=== PATIENT | female | born 1965 | race Two or more races ===

== ENCOUNTER 2024-05-20 16:23 | Emergency (ER) | payer MEDICAID, SELFPAY ==
[2024-05-20 16:24] VITALS: BMI 36.6
[2024-05-20 16:58] VITALS: BP 168/83; PULSE 86; RESP 20; TEMP 37; O2SAT 96
--- NOTE | 2024-05-20 17:05 | PD.EDRME ---
Rapid Medical Screening Exam RME Arrival date/time: 05/20/24 16:23 This is a 58-year-old female presents to the emergency department with complaints of left lower quadrant abdominal pain. I have greeted and performed a focused initial assessment of this patient. Initial appropriate labs ordered at this time. A comprehensive ED assessment and evaluation of the patient and analysis of all test and completion of medical decision making process will be conducted by additional ED provider. Chief Complaint: GI Bleed Time Seen by Provider: 05/20/24 16:51 Vital signs: Vital Signs Temperature 98.6 F 05/20/24 16:58 Pulse Rate 86 05/20/24 16:58 Respiratory Rate 20 05/20/24 16:58 Blood Pressure 168/83 H 05/20/24 16:58 Pulse Oximetry (%) 96 05/20/24 16:58 Oxygen Delivery Method Room Air 05/20/24 16:58
[2024-05-20 18:06] LABS: Basophils # (Auto) 0.1 Thou/mm3 (0.0-0.2); Basophils % (Auto) 1 % (0-2.5); Eosinophils # (Auto) 0.2 Thou/mm3 (0.0-0.5); Eosinophils % (Auto) 2 % (0-10); Hemoglobin 13.8 g/dL (12.0-16.0); Immature Granulocytes % (Auto) 0 % (0-0); Immature Granulocytes Auto 0.02 Thou/mm3 (0.00-0.00); Lymphocytes # (Auto) 3.7 Thou/mm3 (1.0-4.8); Lymphocytes % (Auto) 36 % (10-50); Mean Corpuscular HGB Conc 33.7 g/dl (31.0-37.0); Mean Corpuscular Hemoglobin 28.8 pg (25.0-35.0); Mean Corpuscular Volume 85 fL (80-100); Monocytes # (Auto) 0.9 Thou/mm3 (0.0-0.8); Monocytes % (Auto) 8 % (0-12); Neutrophils # (Auto) 5.5 Thou/mm3 (1.8-7.7); Neutrophils % (Auto) 53 % (37-80); Nucleated Red Blood Cell % 0 /100 WBC (0); Platelet Count 357 Thou/mm3 (140-440); RDW Standard Deviation 42.7 fL (36.4-46.3); White Blood Count 10.3 Thou/mm3 (3.6-11.0)
[2024-05-20 18:25] LABS: Alanine Aminotransferase 21 U/L (10-49); Albumin, Serum 4.7 gm/dL (3.5-5.0); Albumin/Globulin Ratio 1.6 (1.2-2.2); Alkaline Phosphatase 70 U/L (46-116); Anion Gap 11 (7-16); Aspartate Amino Transferase 20 U/L (0-34); BUN/Creatinine Ratio 13 Ratio (12-20); Bilirubin,Total 0.7 mg/dL (0.3-1.2); Blood Urea Nitrogen 13 mg/dL (9-23); Calcium 9.7 mg/dL (8.3-10.6); Calcium (Corrected) 9.7 mg/dL (8.5-10.1); Carbon Dioxide 24.2 mMol/L (20.0-31.0); Chloride 105 mMol/L (98-107); Estimated Creatinine Clearance 65.8 mL/min (>60); Glucose 109 mg/dL (74-106); Lipase 33 U/L (12-53); Osmolality,Calculated 280 (275-295); Potassium 4.1 mMol/L (3.4-5.1); Prothrombin Time 10.9 Seconds (9.0-12.2); Sodium 140 mMol/L (136-145); Total Protein 7.7 gm/dL (5.7-8.2); eGFR > 60 See Note
--- NOTE | 2024-05-20 18:42 | PD.EDGIBLD ---
ED GI Bleed RME/HPI General Chief complaint: GI Bleed Stated complaint: THERE WAS BLOOD IN MY POOP SINCE YESTERDAY. Time Seen by Provider: 05/20/24 16:51 Arrival date/time: 05/20/24 16:23 RME / HPI RME / HPI Narrative: 05/20/24 16:23 This is a 58-year-old female presents to the emergency department with complaints of left lower quadrant abdominal pain. I have greeted and performed a focused initial assessment of this patient. Initial appropriate labs ordered at this time. A comprehensive ED assessment and evaluation of the patient and analysis of all test and completion of medical decision making process will be conducted by additional ED provider. This section includes all my notes and documentations, including HPI, PE, and ED course. Timothy Aceves MD HPI: 58yo female with a history of GERD, HTN, HLD presents to the ED with several days of epigastric tenderness. And several episodes of rectal bleeding, describes bright red blood. No hematemesis or coffee-ground emesis. No tarry stools. No other complaints. ROS: All negative except as documented in HPI. Physical Exam: General: Alert and oriented. Appears uncomfortable. Eyes: Conjunctivae and lids clear. ENT: No nasal congestion. Neck: Supple. Heart: RRR. Lungs: No respiratory distress. Good air movement. No rhonchi, wheezing, rales. Abdomen: Soft with epigastric tenderness. Normal BS. No distention. No rebound or guarding. Legs: No clubbing, cyanosis, edema. Skin: Warm and dry. Neuro: Alert and oriented X 3. I reviewed all diagnostic test results. My review of the abdominal CT report is gastritis. Blood tests and urine tests unremarkable. At this point, diagnoses include gastritis and rectal bleeding. Treatment here included Famotidine, NS, Toradol, Morphine, Zofran, and Pantoprazole. Significant improvement noted. Prescribed famotidine and omeprazole and recommended more outpatient workup. Based on my best medical judgment, made decision no further evaluation or treatment indicated at this time. Patient understands and agrees to the discharge instructions customized and printed, see below. Discharge instructions from Dr. Aceves: ?After evaluation, there is no evidence of active internal bleeding. --The CT scan shows stomach ulcer (see attached handout). ?To help heal the ulcer, take Omeprazole 40 mg every morning and Famotidine 40 mg at bedtime for a month. ?Zofran for nausea/vomiting. Clear liquid diet for 24 hours. Then slowly advance diet as tolerated. Tylenol with codeine for severe pain. ?Avoid food and beverages that can trigger and worsen ulcers. See attached handout. ?See a private doctor on 05/23/2024 for recheck and further care. To make sure there is no serious intra-abdominal condition, ask for help with more investigation not available here in the ER. Such as EGD or scoping the stomach, colonoscopy or scoping the colon, and referral to see garment form assembler. ?Seek immediate medical care with worsening or with any concerns. Timothy Aceves MD Related Data Home Medications ?Medication ?Instructions ?Recorded ?Confirmed lisinopril 20 mg tablet 20 mg PO HS 03/17/18 01/05/22 paroxetine HCl 40 mg tablet 40 mg PO QDAY 03/17/18 01/05/22 quetiapine 50 mg tablet (Seroquel) 100 mg PO HS 03/17/18 01/05/22 pantoprazole 40 mg tablet,delayed 40 mg PO QDAY 03/22/19 01/05/22 release cetirizine 10 mg tablet 10 mg PO QDAY 01/05/22 01/05/22 pravastatin 20 mg tablet 20 mg PO QDAY 01/05/22 01/05/22 topiramate 100 mg tablet 100 mg PO BID 01/05/22 01/05/22 Previous Rx's ?Medication ?Instructions ?Recorded pantoprazole 40 mg tablet,delayed 40 mg PO QDAY #30 tabs 04/10/23 release (Protonix) acetaminophen 300 mg-codeine 30 mg 2 tab PO Q8H PRN pain #20 tabs 05/20/24 tablet famotidine 40 mg tablet 40 mg PO .bedtime #30 tabs 05/20/24 omeprazole 40 mg capsule,delayed 40 mg PO QDAY #30 caps 05/20/24 release ondansetron 4 mg disintegrating 4 mg PO TID PRN nausea and 05/20/24 tablet vomiting 30 days #10 tabs Allergies Allergy/AdvReac Type Severity Reaction Status Date / Time diazepam Allergy Intermediate hives, Verified 05/20/24 16:29 swelling hydrocodone Allergy Intermediate throat Verified 05/20/24 16:29 swelling, hives tomato Allergy Intermediate Swelling Verified 05/20/24 16:29 of Lip/Tongue/Throat lactose Allergy Gastrointestinal Verified 05/20/24 16:29 Upset Review of Systems Review of Systems Systems Reviewed: All systems reviewed, normal except as documented Past Medical History Past Medical History NEUROLOGIC: Positive Neurological Disorders, Transient Ischemic Attacks (TIA) and Migraine; Negative Seizures CARDIAC: Positive Heart Murmur, Hypercholesterolemia and Hypertension; Negative Cardiac Disorders or Congestive Heart Failure RESPIRATORY: Negative Chronic Obstructive Pulmonary Disease (COPD) or Asthma GASTROINTESTINAL: Positive Gastrointestinal Disorders and Gastroesophageal Reflux Disease GENITOURINARY: Negative Genitourinary Disorders or Renal Disease REPRODUCTIVE: Positive Previous Pregnancies MUSCULOSKELETAL: Positive Musculoskeletal Disorders and Arthritis ENDOCRINE: Negative Endocrine Disorders, Diabetes Mellitus Type 1 or Diabetes Mellitus Type 2 HEMATOLOGIC: Negative Blood Disorders or Sickle Cell Disease PSYCHO/SOCIAL: Positive Schizophrenia, Depression, Anxiety and Post Traumatic Stress Disorder OTHER HISTORY: Positive Chicken Pox and Measles; Negative Autoimmune Disease, Blood Transfusions, Anesthesia Reactions, MRSA, VRSA, Vancomycin-Resistant Enterococci or Cancer Family History FAMILY HISTORY: Positive Family Cardiac Disorders and Family Cancer; Negative Family Psychiatric Problems, Family Respiratory Disorders, Family Gastrointestinal Problems, Family Surgery or Family Anesthesia Reaction Surgical History SURGICAL: Positive Abdominal Surgery and Tubal Ligation Social History SMOKING STATUS: Never smoker SUBSTANCE USE: former substance user (quit X15 years, relapsed X1) and methamphetamine 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 Course Quality Measures none Orders Category Date Time Status CT Screening NOW Care 05/20/24 18:[address] Screening NOW Care 05/20/24 20:32 Active Insert IV NOW Care 05/20/24 17:05 Active NPO STAT Care 05/20/24 17:[address] angio abdomen pelvis Stat Exams 05/20/24 20:32 Completed CBC Stat Lab 05/20/24 17:45 Completed Comprehensive Metabolic Panel Stat Lab 05/20/24 17:45 Completed Hemoglobin and Hematocrit Stat Lab 05/20/24 21:29 Completed Lipase Stat Lab 05/20/24 17:45 Completed Prothrombin Time with INR Stat Lab 05/20/24 17:45 Completed Type and Screen Stat Lab 05/20/24 17:45 Completed Urinalysis Stat Lab 05/20/24 20:00 Completed Famotidine Inj [Pepcid Inj] Med 05/20/24 22:39 Discontinued 20 mg IVP X1 ONE Ketorolac Inj [Toradol Inj] Med 05/20/24 21:15 Discontinued 30 mg IVP X1 ONE Morphine Inj Med 05/20/24 21:15 Discontinued 4 mg IVP X1 ONE Ondansetron Inj [Zofran Inj] Med 05/20/24 21:15 Discontinued 4 mg IV X1 ONE Pantoprazole Inj [Protonix Inj] Med 05/20/24 22:39 Discontinued 80 mg IVP X1 ONE Sodium Chloride 0.9% 1000 ml [Ns] 1,000 ml Med 05/20/24 21:15 Discontinued IV 999 mls/hr Vital Signs Vital signs: Vital Signs Temperature 98.6 F 05/20/24 16:58 Pulse Rate 86 05/20/24 16:58 Respiratory Rate 20 05/20/24 16:58 Blood Pressure 168/83 H 05/20/24 16:58 Pulse Oximetry (%) 96 05/20/24 16:58 Oxygen Delivery Method Room Air 05/20/24 16:58 GI Bleed Patient data External records reviewed:: [facility] previous records (Per chart review, patient was seen here on 04/09/23 for abdominal pain.) Clinical information provided by:: patient Social determinants that could affect healthcare access:: none Patient has the following chronic illnesses:: TIA, HTN, HLD, GERD How is presenting disease/condition affected by chronic disease/condition?: uneffected by Evaluation data The following diagnostics were reviewed and interpreted by me:: lab results and radiology exam(s) Lab and/or radiology exams considered but not ordered:: none Interpretation Summary: Gastritis Medications / Prescriptions Medications or Prescriptions considered but not ordered:: none Medication administrations:: Medication Administration History Discontinued Medications Famotidine (Famotidine Inj 10 Mg/Ml Vial 2 Ml) 20 mg IVP X1 ONE Stop: 05/20/24 22:40 Sodium Chloride (Ns) 1,000 mls @ 999 mls/hr IV .Q1H1M ONE Stop: 05/20/24 22:15 Last Admin: 05/20/24 21:40 Dose: 999 mls/hr Documented By: LB Ketorolac Tromethamine (Ketorolac Inj 30 Mg/Ml Vial) 30 mg IVP X1 ONE Stop: 05/20/24 21:16 Last Admin: 05/20/24 21:43 Dose: 30 mg Documented By: LB Morphine Sulfate (Morphine Sulf Inj 10 Mg/Ml Vial) 4 mg IVP X1 ONE Stop: 05/20/24 21:16 Last Admin: 05/20/24 22:24 Dose: 4 mg Documented By: LB Ondansetron HCl (Ondansetron Inj 2 Mg/Ml Inj 2 Ml) 4 mg IV X1 ONE; Protocol Stop: 05/20/24 21:16 Last Admin: 05/20/24 21:41 Dose: 4 mg Documented By: CHAPO Pantoprazole Sodium (Pantoprazole Inj 40 Mg Vial) 80 mg IVP X1 ONE Stop: 05/20/24 22:40 Famotidine, NS, Toradol, Morphine, Zofran, Pantoprazole Consultations Consultation(s) initiated? (list below): No Diagnosis GI bleed differential diagnosis: hemorrhoids, esophageal varices, gastritis, Ana-[place] syndrome, Upper gastrointestinal hemorrhage, Lower gastrointestinal hemorrhage, hematochezia, melena and other (Gastritis, PUD, GERD) Most likely diagnosis given after review of the tests above:: Stomach ulcer, Rectal bleeding Admission Indicated Admission indicated?: not indicated Explain why admission is indicated or not indicated:: No criteria for admission. Admission Request Was there a request for admission?: No Disposition Plan Disposition Plan: Discharge Discharge Attestation Discharge Attestation: The patient and all family members were given an opportunity to ask questions and understood the discharge instructions. Discharge instructions specifically effects, indications for sooner follow up or return to the emergency department, and the expected course of current diagnosis. Patient condition: Stable Discharge Plan Plan Patient Disposition: HOME (Self Care) Prescriptions/Referrals Prescriptions/Med Rec: New famotidine 40 mg tablet 40 mg PO .bedtime Qty: 30 0RF acetaminophen-codeine 300-30 mg tablet 2 tab PO Q8H MDD 6 PRN (Reason: pain) Qty: 20 0RF omeprazole 40 mg capsule,delayed release(DR/EC) 40 mg PO QDAY Qty: 30 0RF ondansetron 4 mg tablet,disintegrating 4 mg PO TID PRN (Reason: nausea and vomiting) 30 Days Qty: 10 0RF No Action lisinopril 20 mg Tablet 20 mg PO HS paroxetine HCl 40 mg Tablet 40 mg PO QDAY quetiapine [Seroquel] 50 mg Tablet 100 mg PO HS pantoprazole 40 mg Tablet,Delayed Release (Dr/Ec) 40 mg PO QDAY cetirizine 10 mg Tablet 10 mg PO QDAY pravastatin 20 mg Tablet 20 mg PO QDAY topiramate 100 mg Tablet 100 mg PO BID pantoprazole [Protonix] 40 mg tablet,delayed release (DR/EC) 40 mg PO QDAY Qty: 30 0RF Referrals: Best Abrams MD [Primary Care Provider] - In 1 week Problem List Clinical Impression: Stomach ulcer, Rectal bleeding Patient/Caregiver Discharge Instructions Discharge Activity: activity as tolerated Education Materials: ED Lower GI Bleeding (Stable), ED PEPTIC ULCER vs GASTRITIS Additional Instructions: Discharge instructions from Dr. Aceves: ?After evaluation, there is no evidence of active internal bleeding. --The CT scan shows stomach ulcer (see attached handout).? ?To help heal the ulcer, take Omeprazole 40 mg every morning and Famotidine 40 mg at bedtime for a month. ?Zofran for nausea/vomiting.? Clear liquid diet for 24 hours.? Then slowly advance diet as tolerated. Tylenol with codeine for severe pain. ?Avoid food and beverages that can trigger and worsen ulcers.? See attached handout. ?See a private doctor on 05/23/2024 for recheck and further care. To make sure there is no serious intra-abdominal condition, ask for help with more investigation not available here in the ER.? Such as EGD or scoping the stomach, colonoscopy or scoping the colon, and referral to see garment form assembler. ?Seek immediate medical care with worsening or with any concerns. Print Language: Maori Stand Alone Forms: [employer] Info., Patient Portal Info Letter
[2024-05-20 19:52] VITALS: BP 147/88; PULSE 78; RESP 18; TEMP 36.8; O2SAT 99
--- NOTE | 2024-05-20 20:12 | PC.NURSE ---
Initial contact with pt. Awake c/o severe pain to LUQ, and LLQ. Pain stated that abd pain started after having bloody stool.
[2024-05-20 20:21] LABS: Collection Type, Urine Clean Catch
[2024-05-20 20:32] LABS: Bilirubin,Urine Negative (Negative); Blood,Urine Negative (Negative); Clarity,Urine Clear (Clear/Hazy); Color,Urine Yellow (Lt Yel-Yel); Glucose, Urine Negative (Negative); Ketones,Urine Negative (Negative); Leukocyte Esterase,Urine Negative (Negative); Nitrite,Urine Negative (Negative); Protein,Urine 1+ (Neg - Trace); RBC,Urine 3 /hpf (0-3); Specific Gravity,Urine 1.031 (1.001-1.035); Squamous Epithelial Cell,Urine 4 /hpf (0-5); Urobilinogen,Urine Negative mg/dL (0.0-1.0); WBC,Urine 2 /hpf (0-5)
--- NOTE | 2024-05-20 20:32 | XR_ITS ---
Examination: CTA abdomen, with intravenous contrast. CTA pelvis, with intravenous contrast. 2-D sagittal and coronal reconstructions. 3-D reconstructions. Date and time of exam: May 20, 2024 2104 hours INDICATIONS: Hematochezia and nausea vomiting beginning 2 days ago CTDI vol (mgy) 11.5 DLP (MGycm) 613 Technique: Multiple CTA images, 2.0 mm slice thickness, obtained abdomen, pelvis, with the high-resolution 64 slice scanner. 100 cc Isovue 370 is administered intravenously. Sagittal and coronal 2-D reconstructions are obtained. 3-D reconstructions, angiographic images are obtained. 3-D postprocessing, including vascular maximum intensity projections. Low dose protocols were performed. One or more of the following dose reduction techniques were used; automated exposure control, adjustment of the mA and/or KV according to patient size, use of iterative reconstruction technique. Findings: Diffuse fatty infiltration throughout the liver Gastric mucosa, axial image 40 is significantly thickened No gallstones Spleen is not enlarged No pancreatic or adrenal masses No renal or ureteral calculi, no hydronephrosis No pericecal inflammatory change No diverticulitis No pelvic mass Urinary bladder intact IMPRESSION: Gastritis pattern No abnormal extravasation of contrast in the gastrointestinal tract No nonspecific colitis or enteritis pattern
--- NOTE | 2024-05-20 20:58 | PC.NURSE ---
To ct-scan via gurney.
[2024-05-20 21:30] VITALS: BP 143/86; PULSE 69; RESP 20; O2SAT 100
[2024-05-20] MEDS: SODIUM CHLORIDE 0.9% 1000 ML 1,000 ML 999 ML IV (21:40)
[2024-05-20] MEDS: ONDANSETRON INJ 2 MG/ML INJ 2 ML 4 MG IV (21:41)
[2024-05-20] MEDS: KETOROLAC INJ 30 MG/ML VIAL IVP (21:43)
[2024-05-20 21:47] LABS: Hematocrit 36.6 % (36.0-46.0); Hemoglobin 12.3 g/dL (12.0-16.0)
--- NOTE | 2024-05-20 22:12 | PC.NURSE ---
pt stated that she had Morphine before and had no reaction to it. [place] makes her hallucinate.
[2024-05-20] MEDS: MORPHINE SULF INJ 10 MG/ML VIAL 4 MG IVP (22:24)
--- NOTE | 2024-05-20 22:32 | PC.NURSE ---
Dr. Aceves in to re-eval pt. Awake, resting quietly, IVP pain med effective per pt.
[2024-05-20] MEDS: PANTOPRAZOLE INJ 40 MG VIAL 80 MG IVP (23:25)
[2024-05-20] MEDS: FAMOTIDINE INJ 10 MG/ML VIAL 2 ML 20 MG IVP (23:26)
[2024-05-20 23:28] VITALS: BP 161/86; PULSE 75; RESP 18; TEMP 36.8; O2SAT 98
[2024-05-21] VITALS: BP 161/86; PULSE 78; RESP 18; TEMP 36.8; O2SAT 998
== END 2024-05-21 00:03 | disposition home or self-care (01) ==
PROVIDERS: Nurse Practitioner Primary Care; Emergency Provider Emergency Medicine; PCP Emergency Medicine
DX: K25.9 Gastric ulcer, unspecified as acute or chronic, without hemorrhage or perforation (principal); K62.5 Hemorrhage of anus and rectum; K21.9 Gastro-esophageal reflux disease without esophagitis; I10 Essential (primary) hypertension; E78.5 Hyperlipidemia, unspecified
CPT/HCPCS: 36415; 74174; 80053; 81001; 83690; 85014; 85018; 85025; 85610; 86850; 86900; 86901; 96361; 96374; 96375; 99285; A4649; J1885; J2270; J2405; J2470; J3490; J7030; Q9967

== ENCOUNTER → 2024-05-27 | Outpatient (CLI) | payer MEDICAID, SELFPAY ==
--- NOTE | 2024-05-27 09:00 | XR_ITS ---
Examination: Breast ultrasound complete, bilateral Date and time of exam: Negative May 19, 2024 0919 hours INDICATIONS: Right breast sonogram June 24, 2022 Glandular tissue right breast 10:00 position, patient states bilateral breast pain one year, family history, mother breast cancer Technique: Real-time grayscale ultrasonographic imaging bilateral breasts, including all 4 quadrants as well as nipple retroareolar and axillary regions. Findings: Sonographic images right breast 3:00 cyst 7 x 7 mm 3:00 circumscribed nodule 7 x 6 mm 10:00 cyst 5 x 5 mm 12:00 nodule indistinct margins 17 x 7 x 13 mm Sonographic images left breast 2:00 nodule lobular margins 8 x 7 mm 2:00 cyst 7 x 7 mm 3:00 cyst 5 x 5 mm IMPRESSION:: BI-RADS Category 4: Suspicious for malignancy Suspicious nodule right breast 12:00 position, biopsy is needed to exclude breast carcinoma, this mass is amenable to ultrasound-guided breast biopsy for diagnosis Continued 6 month bilateral breast sonography follow-up strongly recommended
--- NOTE | 2024-05-27 10:15 | XR_ITS ---
Examination: Diagnostic digital mammography, bilateral Computer aided detection 3-D breast Tomosynthesis, bilateral Date and time of exam: May 19, 2024 0905 hours INDICATIONS: Bilateral breast itching and pain years, history negative stereotactic breast biopsy Technique: Nonmagnified MLO, CC views of the breasts to been obtained, reconstructed from 3-D Tomosynthesis images. R2 computer aided detection program utilized for evaluation of suspicious masses and/or abnormal calcifications. 3-D Tomosynthesis images obtained. Findings: The breasts are heterogeneously dense, which may obscure small masses Breast biopsy marker upper outer right breast No suspicious masses Impression: BI-RADS Category 0: Incomplete: Need additional imaging evaluation Given the patient's presentation, recommend bilateral breast sonography follow-up.
== END | disposition home or self-care (01) ==
LOC: CDIM 08:39
PROVIDERS: PCP Physician Assistant; Referring Provider Physician Assistant; Visit Provider Physician Assistant
DX: R92.343 Mammographic extreme density, bilateral breasts (principal); N63.15 Unspecified lump in the right breast, overlapping quadrants
CPT/HCPCS: 76641; 77062; 77066; G0279

== ENCOUNTER → 2024-09-21 | Outpatient (CLI) | payer MEDICAID, SELFPAY ==
[2024-09-20 13:37] LABS: Basophils # (Auto) 0.1 Thou/mm3 (0.0-0.2); Basophils % (Auto) 1 % (0-2.5); Eosinophils # (Auto) 0.2 Thou/mm3 (0.0-0.5); Eosinophils % (Auto) 3 % (0-10); Hematocrit 41.5 % (36.0-46.0); Hemoglobin 13.8 g/dL (12.0-16.0); Immature Granulocytes Auto 0.02 Thou/mm3 (0.00-0.00); Lymphocytes # (Auto) 3.3 Thou/mm3 (1.0-4.8); Lymphocytes % (Auto) 39 % (10-50); Mean Corpuscular HGB Conc 33.3 g/dl (31.0-37.0); Mean Corpuscular Hemoglobin 29.3 pg (25.0-35.0); Mean Corpuscular Volume 88 fL (80-100); Monocytes # (Auto) 0.5 Thou/mm3 (0.0-0.8); Monocytes % (Auto) 6 % (0-12); Neutrophils # (Auto) 4.3 Thou/mm3 (1.8-7.7); Neutrophils % (Auto) 51 % (37-80); Nucleated Red Blood Cell # 0.00 Thou/mm3 (0.00-0.00); Nucleated Red Blood Cell % 0 /100 WBC (0); Platelet Count 326 Thou/mm3 (140-440); RDW Standard Deviation 42.5 fL (36.4-46.3); Red Blood Count 4.71 Miln/mm3 (4.00-5.20); White Blood Count 8.4 Thou/mm3 (3.6-11.0)
[2024-09-20 13:51] LABS: INR 1.0 (0.9-1.3); Partial Thromboplastin Time 27.5 Seconds (22.0-36.0); Prothrombin Time 10.8 Seconds (9.0-12.2)
--- NOTE | 2024-09-21 09:30 | XR_ITS ---
Examinations: Ultrasound-guided percutaneous breast biopsy, right breast 12:00 nodule Right breast sonography limited INDICATIONS: Right breast sonogram May 27, 2024 BI-RADS 4 suspicious nodule 12:00 position right breast. Exam date and time: September 21, 2024, 0959 hours. Informed consent provided. Technique: A timeout was completed verifying correct patient, procedure, site, positioning, and special equipment if applicable Informed consent provided. The patient was placed in a supine position for the breast biopsy. Sonographic images of the breast were performed for localization of the suspicious nodule The patient's breast was prepped and draped in sterile fashion. Maximum sterile barrier technique, hand hygiene, ultrasound sterile technique 1% lidocaine was used to anesthetize the skin and breast adjacent to the suspicious nodule. Utilizing ultrasonographic guidance, 8 core biopsies were obtained of the suspicious nodule utilizing an 18-gauge BioPince needle. The specimens appears satisfactory. US guided breast biopsy marker placement. Estimated blood loss 3 cc. The patient tolerated the procedure well and there were no complications. Impression: Successful ultrasound-guided percutaneous breast biopsy, 12:00 nodule. Ultrasound guided breast biopsy marker placement.
== END | disposition home or self-care (01) ==
LOC: SDIM 09:20
PROVIDERS: Radiology Diagnostic Radiology; PCP Physician Assistant; Referring Provider Physician Assistant; Visit Provider Physician Assistant
DX: D24.1 Benign neoplasm of right breast (principal); N62 Hypertrophy of breast; Z01.812 Encounter for preprocedural laboratory examination
CPT/HCPCS: 19083; 36415; 85025; 85610; 85730; A4648